=== PATIENT | female | born 1995 | race African-American/Black ===

== ENCOUNTER 2021-11-05 11:03 | Emergency (ER) | payer OTHER, SELFPAY ==
[2021-11-05 11:29] VITALS: BP 127/71; PULSE 86; RESP 16; TEMP 37; O2SAT 100
--- NOTE | 2021-11-05 11:42 | ED.GENADULT ---
HPI - General Adult General Chief complaint: Eye Problems Stated complaint: Congestion,Bilateral Eye Irritation Time Seen by Provider: 11/05/21 11:42 History of Present Illness HPI narrative: Jorje Hurtado is a 26 yo female with no PMH who comes to [facility] with congestion and bilateral eye irritation for 1 day. Left eye mucus drainage and red yesterday and today the right eye is also red, no cough, no fever, no nausea vomiting or diarrhea. Patient has been vaccinated for Covid Related Data Allergies Allergy/AdvReac Type Severity Reaction Status Date / Time No Known Allergies Allergy Verified 11/05/21 11:45 Review of Systems Review of Systems: CONSTITUTIONAL: Denies fever, chills, sweats. EYES: Denies visual changes, redness, bilateral irritation and left-sided discharge. ENT: Denies rhinorrhea, mild congestion, sore throat, otalgia. CARDIOVASCULAR: Denies chest pain, palpitations, edema. RESPIRATORY: Denies dyspnea, wheezing, cough GASTROINTESTINAL: Denies abdominal pain, nausea, vomiting, diarrhea. GENITOURINARY: Denies dysuria, hematuria, abnormal discharge SKIN: Denies rash or itching. NEUROLOGIC: Denies numbness, or focal weakness. PSYCHIATRIC: Denies anxiety or depression. [facility], [facility] Past Medical History Medical History No acute medical problems Social History Social History (Updated 11/05/21 @ 11:46 by Marcelina Blake CNP) Smoking status: Never smoker Alcohol intake: current Comments At time of signature, I agree with nursing past medical, surgical, social and family history. There is no relevant family history pertinent to the presenting complaint. Exam Narrative: GENERAL: This is a well-nourished, well-developed patient, in mild distress. HEAD: normocephalic, atraumatic. EYES: Sclera red both eyes without discharge Vision is grossly intact. Good bilateral vision and eye chart EARS: External ears normal, auditory canals erythema and without drainage, Fluid behind TMs . Tender lymph nodes hearing grossly intact. NOSE: External nose normal without nasal discharge, nares without redness, no rhinorrhea. THROAT: Mucous membranes moist, posterior pharynx mild erythema NECK: Neck supple, mild-tender CARDIOVASCULAR: Regular rate and rhythm without murmurs, gallops, or rubs. RESPIRATORY: Clear to auscultation. Breath sounds equal bilaterally. No wheezes, rales, or rhonchi. GASTROINTESTINAL: Not done SKIN: warm, intact with no suspicious lesions or rash, good texture and turgor. NEURO: awake, alert, and oriented to person, place and time. There were no obvious focal neurologic abnormalities. Steady gait EXTREMITIES: Normal range of motion. BACK: Nontender without deformity Course Course Emergency Course: Patient comes with bilateral eye irritation with discharge from the left, and has mild congestion On exam ears are also reddened and has mild pain on palpation Started on tobramycin eyedrops, neomycin w Dex eardrops, Mucinex Vital Signs Vital signs: Vital Signs Temperature 98.6 F 11/05/21 11:29 Pulse Rate 86 11/05/21 11:29 Respiratory Rate 16 11/05/21 11:29 Blood Pressure 127/71 11/05/21 11:29 Pulse Oximetry 100 11/05/21 11:29 Temperature 98.6 F 11/05/21 11:29 Pulse Rate 86 11/05/21 11:29 Respiratory Rate 16 11/05/21 11:29 Blood Pressure 127/71 11/05/21 11:29 Pulse Oximetry 100 11/05/21 11:29 Medical Decision Making Differential Diagnosis Differential Diagnosis: Ear pain versus upper respiratory infection versus strep throat versus pharyngitis Vital Signs Vital Signs: Vital Signs Temperature 98.6 F 11/05/21 11:29 Pulse Rate 86 11/05/21 11:29 Respiratory Rate 16 11/05/21 11:29 Blood Pressure 127/71 11/05/21 11:29 Pulse Oximetry 100 11/05/21 11:29 Temperature 98.6 F 11/05/21 11:29 Pulse Rate 86 11/05/21 11:29 Respiratory Rate 16 11/05/21 11:29 Blood Pressure 127/71
== END 2021-11-05 12:02 | disposition home or self-care (01) ==
PROVIDERS: Emergency Provider Nurse Practitioner
DX: H10.9 Unspecified conjunctivitis (principal); R09.81 Nasal congestion; H60.313 Diffuse otitis externa, bilateral
CPT/HCPCS: 99203; G0463